=== PATIENT | female | born 1995 | race Caucasian/White ===

== ENCOUNTER → 2017-11-18 | Outpatient (CLI) | payer BC ==
[2015-10-28 15:46] VITALS: BP 140/74
[~2017-11-18] VITALS: Ht 157.5 cm; Wt 72.6 kg
[~2017-11-18] MED LIST: SINCALIDE 1.45 MCG in IV NORMAL SALINE 50ML 30 ML IV ONE
--- NOTE | 2017-11-18 14:31 | RAD ---
Examination: HIDA scan History: History of abdominal pain Comparison: None available Findings: 5.5 mCi of technetium 99m Choletec was administered IV and anterior gamma camera images of the abdomen are performed. There is normal radiotracer uptake identified in the liver with normal excretion of the radiotracer into the gallbladder, common bile duct, small bowel. Additional imaging was performed after administration of 1.45 mcg of Kinevac for calculation of gallbladder ejection fraction. The calculated gallbladder ejection fraction was 70%. Impression: 1. No evidence of cystic duct obstruction. 2. Normal gallbladder ejection fraction.
== END | disposition home or self-care (01) ==
LOC: NM 12:13
PROVIDERS: ATTEND Family Medicine
DX: K85.80 Other acute pancreatitis without necrosis or infection (principal)
CPT/HCPCS: 78226; 96374; 96375; A9537; J2805

== ENCOUNTER → 2017-12-03 | Outpatient (CLI) | payer BC ==
[2015-10-28 15:46] VITALS: BP 140/74
[~2017-12-03] MED LIST changes: +IOHEXOL 240 MG/ML 50ML VIAL. ONE; +IOHEXOL 300 MG/ML 75 ML VIAL. IV ONE; -SINCALIDE 1.45 MCG in IV NORMAL SALINE 50ML 30 ML IV ONE
--- NOTE | 2017-12-03 14:02 | RAD ---
CT study of the abdomen with contrast Clinical indications: Right upper quadrant pain for one month. Elevated lipase. Pancreatitis. Comparison: No previous CT available. Technique: After IV infusion of 75 cc of Omnipaque 300, helical CT scanning of the abdomen was performed from the hemidiaphragms down to the iliac crests. GI contrast was administered. RS Compliance Statement: One or more of the following individualized dose reduction techniques were utilized for this examination: 1. Automated exposure control 2. Adjustment of the mA and/or kV according to patient size 3. Use of iterative reconstruction technique Findings: The liver and spleen and pancreas and gallbladder are normal. No peripancreatic inflammatory change or free fluid or pseudocyst is seen. No pancreatic ductal dilatation is seen. No extrahepatic biliary ductal dilatation is seen. No adrenal mass is seen. Both kidneys are normal without hydronephrosis. No focal aneurysmal dilatation of the abdominal aorta is seen. No enlarged abdominal lymphadenopathy is seen. No obstructive bowel pattern is seen. No free air or free fluid or mesenteric edema is seen. The pelvis was not evaluated on this study. No osteolytic process is seen. No lung base consolidation is evident. IMPRESSION: No acute abnormality of the abdomen is evident.
== END | disposition home or self-care (01) ==
LOC: CT 09:59
PROVIDERS: ATTEND Physician Assistant
DX: K85.90 Acute pancreatitis without necrosis or infection, unspecified (principal); R74.8 Abnormal levels of other serum enzymes
CPT/HCPCS: 74160; Q9966; Q9967

== ENCOUNTER 2018-03-10 06:09 | Emergency (ER) | payer SELFPAY ==
[~2018-03-10] VITALS: Ht 157.5 cm; Wt 72.6 kg
[2018-03-10] MEDS ORDERED: IV NORMAL SALINE 1,000ML 1,000 ML IV ONE (07:00)
[2018-03-10] MEDS ORDERED: METOCLOPRAMIDE HCL 10 MG/2 ML VIAL. IV ONE (07:00)
[2018-03-10 07:01] LABS: BASO # 0.1 x10^3/uL (0.0-0.2); BASO % 1 % (0-3); EOS # 0.1 x10^3/uL (0.0-0.7); EOS % 1 % (0-3); HEMOGLOBIN 14.4 g/dL (12.0-15.5); LYMPH # 2.2 x10^3/uL (1.0-4.8); LYMPH % 23 % (24-48); MEAN CORPUSCULAR HEMOGLOBIN 29 pg (25-35); MEAN CORPUSCULAR HGB CONC 33 g/dL (31-37); MEAN CORPUSCULAR VOLUME 86 fL (79-100); MONO # 0.6 x10^3/uL (0.0-1.1); MONO % 6 % (0-9); NEUT # 6.6 x10^3uL (1.8-7.7); NEUT % 69 % (31-73); PLATELET COUNT 299 x10^3/uL (140-400); RED BLOOD COUNT 5.03 x10^6/uL (3.50-5.40); RED CELL DISTRIBUTION WIDTH 14.8 % (11.5-14.5); WHITE BLOOD COUNT 9.6 x10^3/uL (4.0-11.0)
[2018-03-10 07:02] LABS: PREG TEST PT QUAL NEGATIVE (NEG)
[2018-03-10 07:05] LABS: ALBUMIN 3.6 g/dL (3.4-5.0); ALK PHOS 67 U/L (46-116); ALT (SGPT) 23 U/L (14-59); ANION GAP 10 (6-14); AST (SGOT) 22 U/L (15-37); BLOOD UREA NITROGEN 11 mg/dL (7-20); CALCIUM 9.1 mg/dL (8.5-10.1); CARBON DIOXIDE 29 mmol/L (21-32); CHLORIDE 102 mmol/L (98-107); CREATININE 0.9 mg/dL (0.6-1.0); DIRECT BILIRUBIN < 0.1 mg/dL (0.0-0.2); GFR 78.3; GLUCOSE 99 mg/dL (70-99); LIPASE 416 U/L (73-393); POTASSIUM 4.4 mmol/L (3.5-5.1); SODIUM 141 mmol/L (136-145); TOTAL BILIRUBIN 0.2 mg/dL (0.2-1.0); TOTAL PROTEIN 7.6 g/dL (6.4-8.2)
[2018-03-10 07:15] LABS: BILIRUBIN,URINE NEG (NEG); CLARITY,URINE CLOUDY; COLOR,URINE YELLOW; GLUCOSE,URINE NEG (NEG)
[2018-03-10 07:16] LABS: AMORPHOUS SEDIMENT,UR PRESENT /HPF; BACTERIA,URINE MOD /HPF (0-FEW); NITRITE,URINE NEG (NEG); RBC,URINE 0 /HPF (0-2); SQUAMOUS EPITHELIAL CELL,UR FEW /LPF; UROBILINOGEN,URINE 0.2 mg/dL (0.2 mg/dL); WBC,URINE 0 /HPF (0-4)
[2018-03-10] MEDS ORDERED: IOHEXOL 300 MG/ML 75 ML VIAL. IV ONE (07:30)
[2018-03-10 08:15] VITALS: BP 133/67
--- NOTE | 2018-03-10 08:18 | RAD ---
CT abdomen and pelvis with contrast History: Lower abdominal pain, nausea Technique: After the administration of intravenous contrast, CT imaging was performed of the abdomen and pelvis. No oral contrast was given as per request. Multiplanar images are reviewed. Exposure: One or more of the following individualized dose reduction techniques were utilized for this examination: 1. Automated exposure control 2. Adjustment of the mA and/or kV according to patient size 3. Use of iterative reconstruction technique. Contrast: 75 cc Omnipaque 300 Comparison: None Findings: There is no significant abnormality of the visualized lung bases. There is no significant abnormality of the liver, spleen, pancreas, adrenal glands. Both kidneys enhance without hydronephrosis. Gallbladder is present without obvious intraluminal abnormality by CT. Accurate evaluation of bowel is limited without oral contrast. There is no significant inflammatory change adjacent to the bowel. There is no evidence of bowel obstruction, free fluid, or free air. Normal appendix is visualized. There is 2.5 cm hypodense lesion of the right adnexal region with adjacent mild enhancement, internal density measurements 23 Hounsfield units slightly greater than simple fluid. Impression: 1. There is no CT evidence of acute appendicitis. 2. There is hypodense lesion of the right adnexa probably due to slightly complex cyst, mild adjacent enhancement. There is no significant free fluid. Electronically signed by: Luiz Lynch MD (03/10/2018 8:15 AM) [id number]
[2018-03-10] MEDS ORDERED: HYDR-2758 PO (08:21)
[2018-03-10] MEDS ORDERED: METO10TA81 PO (08:21)
--- NOTE | 2018-03-10 08:21 | PHYS DOC ---
Adult General Chief Complaint Chief Complaint: ABDOMINAL PAIN HPI HPI 22-year-old female with a history of chronic abdominal pain presenting to the emergency department today with abdominal pain that she describes as all over and is nonlocalizing. She has had a few CTs of the last 6 months which she reports is unremarkable. She has had a HIDA scan that I'm able to view in our medical record that was unremarkable. She had an endoscopy performed with biopsy which was positive for H. pylori which she initiated antibiotics recently for. She reports that the antibiotics did not help her symptoms. She does occasionally use marijuana but her symptoms are not improved with hot baths. No specific timing. Her pain is nonradiating and nonmigratory. She denies being . She denies vaginal bleeding exposure to STDs fevers chills. She denies foul-smelling discharge or changes in her vaginal discharge color. Past medical history: Chronic abdominal pain and history of elevated lipase. Past surgical history: Bilateral knee surgeries Social history: She denies smoking, denies drinking. He admits to marijuana occasionally. Review of systems was negative for chest pain shortness of breath fevers chills. She has had intermittent vomiting with nonbloody and nonbilious material. She reports intermittent diarrhea and constipation. All other review of systems is negative unless otherwise noted in history of present illness. ED course: 22-year-old female presenting the emergency department with acute on chronic abdominal pain. On arrival she is afebrile with a normal heart rate. On examination she is well-appearing and nontoxic. Abdomen is soft and nontender. No rebound tenderness or guarding. Negative bruits point. Negative [place] sign. IV fluids nausea and pain medication ordered. Blood work sent. CT abdomen pelvis ordered. Blood work unremarkable. CT abdomen pelvis shows no acute pathology. Repeat abdominal exam continues to show soft and nontender abdomen. Patient is feeling better.The patient has been examined and was not found to have an emergency medical condition. The patient was then discharged home in stable condition to follow up with their primary care physician over the next 2- 3 days. They were to return if their symptoms worsened or if they were concerned for any reason. [id number] discharge instructions and return precautions were given. Patient's questions were answered to their satisfaction. Patient is comfortable with plan. Review of Systems Review of Systems SEE ABOVE. Current Medications Current Medications Current Medications Medications (Trade) Dose Ordered Sig/Paulette Start Time Stop Time Status Last Admin Dose Admin Fentanyl Citrate (Fentanyl 2ml Vial) 50 mcg PRN Q30MIN PRN 03/10/18 07:00 03/10/18 07:46 50 MCG Iohexol (Omnipaque 300 Mg/ml) 75 ml 1X ONCE 03/10/18 07:30 03/10/18 07:31 DC 03/10/18 07:38 75 ML Metoclopramide HCl (Reglan Vial) 10 mg 1X ONCE 03/10/18 07:00 03/10/18 07:05 DC 03/10/18 07:06 10 MG Sodium Chloride 1,000 ml @ 1,000 mls/hr 1X ONCE 03/10/18 07:00 03/10/18 07:59 DC 03/10/18 07:06 1,000 MLS/HR Allergies Allergies Allergies Coded Allergies Type Severity Reaction Last Updated Verified No Known Drug Allergies 10/28/15 No Physical Exam Physical Exam SEE ABOVE Constitutional: Well developed, well nourished, no acute distress, non-toxic appearance. [] HENT: Normocephalic, atraumatic, bilateral external ears normal, oropharynx moist, no oral exudates, nose normal. [] Eyes: PERRLA, EOMI, conjunctiva normal, no discharge. [] Neck: Normal range of motion, no tenderness, supple, no stridor. [] Cardiovascular:Heart rate regular rhythm, no murmur [] Lungs & Thorax: Bilateral breath sounds clear to auscultation [] Abdomen: Bowel sounds normal, soft, no tenderness, no masses, no pulsatile masses. [] Skin: Warm, dry, no erythema, no rash. [] Back: No tenderness, no CVA tenderness. [] Extremities: No tenderness, no cyanosis, no clubbing, ROM intact, no edema. [] Neurologic: Alert and oriented X 3, normal motor function, normal sensory function, no focal deficits noted. [] Psychologic: Affect normal, judgement normal, mood normal. [] Current Patient Data Vital Signs Vital Signs Date Time Temp Pulse Resp B/P (MAP) Pulse Ox O2 Delivery O2 Flow Rate FiO2 03/10/18 07:46 16 Room Air 03/10/18 07:10 67 114/56 (75) 95 03/10/18 06:21 98.4 Lab Results Laboratory Tests Test 03/10/18 06:20 03/10/18 06:30 Urine Collection Type Unknown Urine Color Yellow Urine Clarity Cloudy Urine pH 7.0 Urine Specific Robert 1.020 Urine Protein Neg (NEG-TRACE) Urine Glucose (UA) Neg mg/dL (NEG) Urine Ketones (Stick) Trace mg/dL (NEG) Urine Blood Neg (NEG) Urine Nitrite Neg (NEG) Urine Bilirubin Neg (NEG) Urine Urobilinogen Dipstick 0.2 mg/dL (0.2 mg/dL) Urine Leukocyte Esterase Neg (NEG) Urine RBC 0 /HPF (0-2) Urine WBC 0 /HPF (0-4) Urine Squamous Epithelial Cells Few /LPF Urine Amorphous Sediment Present /HPF Urine Bacteria Mod /HPF (0-FEW) Urine Mucus Slight /LPF White Blood Count 9.6 x10^3/uL (4.0-11.0) Red Blood Count 5.03 x10^6/uL (3.50-5.40) Hemoglobin 14.4 g/dL (12.0-15.5) Hematocrit 43.0 % (36.0-47.0) Mean Corpuscular Volume 86 fL (79-100) Mean Corpuscular Hemoglobin 29 pg (25-35) Mean Corpuscular Hemoglobin Concent 33 g/dL (31-37) Red Cell Distribution Width 14.8 % (11.5-14.5) H Platelet Count 299 x10^3/uL (140-400) Neutrophils (%) (Auto) 69 % (31-73) Lymphocytes (%) (Auto) 23 % (24-48) L Monocytes (%) (Auto) 6 % (0-9) Eosinophils (%) (Auto) 1 % (0-3) Basophils (%) (Auto) 1 % (0-3) Neutrophils # (Auto) 6.6 x10^3uL (1.8-7.7) Lymphocytes # (Auto) 2.2 x10^3/uL (1.0-4.8) Monocytes # (Auto) 0.6 x10^3/uL (0.0-1.1) Eosinophils # (Auto) 0.1 x10^3/uL (0.0-0.7) Basophils # (Auto) 0.1 x10^3/uL (0.0-0.2) Sodium Level 141 mmol/L (136-145) Potassium Level 4.4 mmol/L (3.5-5.1) Chloride Level 102 mmol/L (98-107) Carbon Dioxide Level 29 mmol/L (21-32) Anion Gap 10 (6-14) Blood Urea Nitrogen 11 mg/dL (7-20) Creatinine 0.9 mg/dL (0.6-1.0) Estimated GFR (Cockcroft-Gault) 78.3 Glucose Level 99 mg/dL (70-99) Calcium Level 9.1 mg/dL (8.5-10.1) Total Bilirubin 0.2 mg/dL (0.2-1.0) Direct Bilirubin < 0.1 mg/dL (0.0-0.2) Aspartate Amino Transferase (AST) 22 U/L (15-37) Alanine Aminotransferase (ALT) 23 U/L (14-59) Alkaline Phosphatase 67 U/L (46-116) Total Protein 7.6 g/dL (6.4-8.2) Albumin 3.6 g/dL (3.4-5.0) Lipase 416 U/L (73-393) H Serum Test, Qualitative Negative (NEG) EKG EKG [] Radiology/Procedures Radiology/Procedures [] Course & Med Decision Making Course & Med Decision Making Pertinent Labs and Imaging studies reviewed. (See chart for details) [] Dragon Disclaimer Dragon Disclaimer This electronic medical record was generated, in whole or in part, using a voice recognition dictation system. Departure Departure: Impression: Primary Impression: Abdominal pain Disposition: HOME, SELF-CARE Condition: STABLE Referrals: SANDRA HERNANDEZ MD (PCP) Patient Instructions: Abdominal Pain, Women Additional Instructions: Thank you for allowing us to participate in your care today. Followup with your primary care physician in 3 days if your symptoms do not improve. Call your Primary Doctor tomorrow and inform them of your visit today. If you do not have a primary care provider you can ask for a list of our primary care providers. Return to the emergency department you have any new or concerning findings. This should be evaluated by the primary care physician and any necessary consulting services for continued management within a few days after discharge. Return to emergency room if you have any new or concerning symptoms including but not limited to fever, chills, nausea, vomiting, intractable pain, any new rashes, chest pain, shortness of air, uncontrolled bleeding, difficulty breathing, and/or vision loss. If at any time, you are having difficulty getting into your primary care doctor or a specialist, return to the emergency department. Scripts Hydrocodone Bit/Acetaminophen (HYDROCODONE-APAP 5-325 ) 1 Each Tablet 1 TAB PO PRN Q6HRS PRN for PAIN, #10 TAB 0 Refills Prov: RADHA MULLINS MD 03/10/18 Metoclopramide Hcl (REGLAN) 10 Mg Tablet 1 TAB PO PRN BID PRN for NAUSEA, #6 TAB Prov: RADHA MULLINS MD 03/10/18 RADHA MULLINS MD March 10, 2018 08:21
== END 2018-03-10 08:36 | disposition home or self-care (01) ==
LOC: ER 06:09
DX: G89.29 Other chronic pain (principal); R10.9 Unspecified abdominal pain; F12.10 Cannabis abuse, uncomplicated
CPT/HCPCS: 36415; 74177; 80048; 80076; 81001; 83690; 84703; 85025; 87086; 96374; 96375; 96376; 99285; J2765; J3010; Q9967; J7030

== ENCOUNTER 2019-04-10 18:13 | Emergency (ER) | payer SELFPAY ==
[~2019-04-10] VITALS: Ht 157.5 cm; Wt 66.2 kg
[~2019-04-10 18:13] MED LIST changes: +HYDR-2155 PO; -IOHEXOL 240 MG/ML 50ML VIAL. ONE; -IOHEXOL 300 MG/ML 75 ML VIAL. IV ONE; +METO10TA81 PO; +ONDA4TAB10 SL; +Percogesic PO; +RANI-376 PO
--- NOTE | 2019-04-10 19:11 | ED.ADGEN ---
Past History Past Medical History: GERD, Ovarian Cyst, Pancreatitis, P.U.D, UTI Additional Past Medical Histor: history of H. pylori status post treatment Past Surgical History: Other Smoking: Cigarettes Alcohol Use: None Drug Use: None Adult General Chief Complaint Chief Complaint ".. I am having severe chest and upper abdomen pain.. but now the pain in now stop.. and seems to be down on my lower right.. I got a history fo gall bladder problems.. pancreatitis.. and I have GERD.. and had Peptic ulcer.. and H pylori.. but this pain is different.." [facility] HPI Patient is a 23 year old female who presents with history of generalized abdomen pain with now severe Rt. lower abdomen pain. Patient also complains of epigastric and chest pain. Patient also notes she's had some recent pelvic discharge. Patient denies any intake of bad food. Patient denies any trauma. Patient denies any specific ill contacts. Patient denies any tarry stools. No history immunosuppression. No history of STDs. Patient currently rates her pain as 8 out of 10. Any movement exacerbates pain in right lower quadrant. Patient does have a past history of GERD, peptic ulcer disease, H. pylori, and pancreat itis. Pt has had hx of dysmenorrhea. Review of Systems Review of Systems Constitutional: Denies fever or chills [] Eyes: Denies change in visual acuity, redness, or eye pain [] HENT: Denies nasal congestion or sore throat [] Respiratory: Denies cough or shortness of breath [] Cardiovascular: No additional information not addressed in HPI []complaints of epigastric chest pain GI: Complaints of severe right lower quadrant abdominal pain. Complaints of pelvic discharge., Complaints of, nausea, . Denies vomiting, bloody stools or diarrhea [] : Denies dysuria or hematuria [] Musculoskeletal: Denies back pain or joint pain [] Integument: Denies rash or skin lesions [] Neurologic: Denies headache, focal weakness or sensory changes [] Endocrine: Denies polyuria or polydipsia [] All other systems were reviewed and found to be within normal limits, except as documented in this note. Family History Family History Noncontributory to presentation Current Medications Current Medications Current Medications Medications (Trade) Dose Ordered Sig/Paulette Start Time Stop Time Status Last Admin Dose Admin Azithromycin (Zithromax) 1,000 mg 1X ONCE 04/11/19 00:15 04/11/19 00:16 DC Ceftriaxone Sodium 1 gm/ Sodium Chloride 50 ml @ 100 mls/hr 1X ONCE 04/10/19 23:45 04/11/19 00:14 DC 04/10/19 23:54 100 MLS/HR Ceftriaxone Sodium (Rocephin) 1 gm STK-MED ONCE 04/10/19 23:48 04/10/19 23:49 DC Famotidine (Pepcid Vial) 20 mg 1X ONCE 04/10/19 20:00 04/10/19 20:01 DC 04/10/19 20:09 20 MG Info (Do NOT chart on this entry -- for MONITORING) 1 each PRN DAILY PRN 04/10/19 23:15 04/11/19 01:38 DC Iohexol (Omnipaque 240 Mg/ml) 50 ml 1X ONCE 04/10/19 23:15 04/10/19 23:16 DC 04/10/19 23:17 50 ML Iohexol (Omnipaque 300 Mg/ml) 75 ml 1X ONCE 04/10/19 23:15 04/10/19 23:16 DC 04/10/19 23:17 75 ML Ketorolac Tromethamine (Toradol 30mg Vial) 30 mg 1X ONCE 04/10/19 20:00 04/10/19 20:01 DC 04/10/19 20:19 30 MG Lactated Ringer's 1,000 ml @ 1,000 mls/hr Q1H 04/10/19 20:00 04/10/19 20:59 DC 04/10/19 20:09 1,000 MLS/HR Magnesium Hydroxide (Milk Of Magnesia) 2,400 mg 1X ONCE 04/11/19 00:15 04/11/19 00:16 DC Metronidazole 100 ml @ 100 mls/hr 1X ONCE 04/10/19 23:45 04/11/19 00:44 DC 04/10/19 23:54 100 MLS/HR Morphine Sulfate (Morphine 10mg Syringe) 10 mg 1X ONCE 04/10/19 23:00 04/10/19 23:12 DC 04/10/19 23:13 10 MG Ondansetron HCl (Zofran) 8 mg 1X ONCE 04/10/19 20:00 04/10/19 20:01 DC 04/10/19 20:09 8 MG Sodium Chloride 50 ml @ As Directed STK-MED ONCE 04/10/19 23:48 04/10/19 23:49 DC See nursing for home meds Allergies Allergies Allergies Coded Allergies Type Severity Reaction Last Updated Verified No Known Drug Allergies 04/10/19 No Physical Exam Physical Exam Constitutional: in acute distress, non-toxic appearance. [] HENT: Normocephalic, atraumatic, bilateral external ears normal, oropharynx moist, no oral exudates, nose normal. [] Eyes: PERRLA, EOMI, conjunctiva normal, no discharge. [] Neck: Normal range of motion, no tenderness, supple, no stridor. [] Cardiovascular:Heart rate regular rhythm, no murmur [] Lungs & Thorax: Bilateral breath sounds equal at apex on auscultation [] Abdomen: Bowel sounds decreased, soft, right lower quadrant tenderness, no masses, no pulsatile masses. [] Rebound to right lower quadrant. Vaginal exam has mild discharge with cervical motion tenderness. Adnexal tenderness on the right. Hard stool in rectal vault Skin: Warm, dry, no erythema, no rash. [] Back: No tenderness, no CVA tenderness. [] Extremities: No tenderness, no cyanosis, no clubbing, ROM intact, no edema. Positive psoas and obturator sign on right. Patient cannot jump up and down without severe right lower quadrant pain. Bilateral knee scars Neurologic: Alert and oriented X 3, normal motor function, normal sensory function, no focal deficits noted. [] Psychologic: Affect anxious, judgement normal, mood normal. [] Current Patient Data Vital Signs Vital Signs Date Time Temp Pulse Resp B/P (MAP) Pulse Ox O2 Delivery O2 Flow Rate FiO2 04/11/19 00:20 98.5 57 16 122/79 (93) 97 Room Air Lab Results Laboratory Tests Test 04/10/19 18:31 04/10/19 19:35 04/10/19 19:37 Urine Collection Type Unknown Urine Color Straw Urine Clarity Hazy Urine pH 6.5 Urine Specific [place] <=1.005 Urine Protein Neg (NEG-TRACE) Urine Glucose (UA) Neg mg/dL (NEG) Urine Ketones (Stick) Neg mg/dL (NEG) Urine Blood Neg (NEG) Urine Nitrite Neg (NEG) Urine Bilirubin Neg (NEG) Urine Urobilinogen Dipstick 0.2 mg/dL (0.2 mg/dL) Urine Leukocyte Esterase Small (NEG) Urine RBC Occ /HPF (0-2) Urine WBC 11-20 /HPF (0-4) Urine Squamous Epithelial Cells Mod /LPF Urine Bacteria Mod /HPF (0-FEW) Urine Opiates Screen Neg (NEG) Urine Methadone Screen Neg (NEG) Urine Barbiturates Neg (NEG) Urine Phencyclidine Screen Neg (NEG) Urine Amphetamine/Methamphetamine Neg (NEG) Urine Benzodiazepines Screen Neg (NEG) Urine Cocaine Screen Neg (NEG) Urine Cannabinoids Screen Pos (NEG) Urine Ethyl Alcohol Neg (NEG) POC Urine HCG, Qualitative hcg negative (Negative) White Blood Count 12.2 x10^3/uL (4.0-11.0) H Red Blood Count 5.24 x10^6/uL (3.50-5.40) Hemoglobin 15.4 g/dL (12.0-15.5) Hematocrit 47.4 % (36.0-47.0) H Mean Corpuscular Volume 91 fL (79-100) Mean Corpuscular Hemoglobin 29 pg (25-35) Mean Corpuscular Hemoglobin Concent 33 g/dL (31-37) Red Cell Distribution Width 14.0 % (11.5-14.5) Platelet Count 291 x10^3/uL (140-400) Neutrophils (%) (Auto) 60 % (31-73) Lymphocytes (%) (Auto) 31 % (24-48) Monocytes (%) (Auto) 6 % (0-9) Eosinophils (%) (Auto) 2 % (0-3) Basophils (%) (Auto) 1 % (0-3) Neutrophils # (Auto) 7.4 x10^3uL (1.8-7.7) Lymphocytes # (Auto) 3.8 x10^3/uL (1.0-4.8) Monocytes # (Auto) 0.8 x10^3/uL (0.0-1.1) Eosinophils # (Auto) 0.2 x10^3/uL (0.0-0.7) Basophils # (Auto) 0.1 x10^3/uL (0.0-0.2) Prothrombin Time 9.4 SEC (9.4-11.4) Prothrombin Time INR 0.9 (0.9-1.1) PTT 25 SEC (23-33) Sodium Level 138 mmol/L (136-145) Potassium Level 4.1 mmol/L (3.5-5.1) Chloride Level 102 mmol/L (98-107) Carbon Dioxide Level 30 mmol/L (21-32) Anion Gap 6 (6-14) Blood Urea Nitrogen 13 mg/dL (7-20) Creatinine 0.7 mg/dL (0.6-1.0) Estimated GFR (Cockcroft-Gault) 103.7 Glucose Level 108 mg/dL (70-99) H Calcium Level 9.1 mg/dL (8.5-10.1) Total Bilirubin 0.2 mg/dL (0.2-1.0) Direct Bilirubin 0.1 mg/dL (0.0-0.2) Aspartate Amino Transferase (AST) 14 U/L (15-37) L Alanine Aminotransferase (ALT) 21 U/L (14-59) Alkaline Phosphatase 82 U/L (46-116) Total Protein 8.2 g/dL (6.4-8.2) Albumin 3.9 g/dL (3.4-5.0) Lipase 348 U/L (73-393) Microbiology 04/10/19 Wet Prep - Final, Complete Microbiology 04/10/19 Wet Prep - Final, Complete EKG EKG My interpretation of EKG shows a sinus rhythm at 64 bpm. Does have some contour abnormalities in the anterior septal region. But no findings acute STEMI of contralateral changes.[] Radiology/Procedures Radiology/Procedures [][address] [address] IMAGING REPORT Signed PATIENT: MARCELINA FARNSWORTH ACCOUNT: [id number] : 1995 LOCATION: ER AGE: 23 SEX: F EXAM STATUS: REG ER ORD. PHYSICIAN: ROSLYN MEEK MD REASON: Pain Rt. lower quadrant PROCEDURE: CT ABD PELV W/ORAL&IV CONTRAST EXAM: CT Abdomen and Pelvis with IV contrast CLINICAL HISTORY: Right lower quadrant pain. COMPARISON: none TECHNIQUE: Helical CT of the abdomen and pelvis was performed following the administration of intravenous contrast. Axial, coronal and sagittal reformatted images were generated. PQRS compliance statement - One or more of the following individualized dose reduction techniques were utilized for this study: 1. Automated exposure control 2. Adjustment of the mA and/or kV according to patient size 3. Use of iterative reconstruction technique FINDINGS: Lower chest: Lung bases are clear. Abdomen and Pelvis: No focal liver lesion. Gallbladder is normal. No biliary ductal dilatation. Spleen is unremarkable. Adrenal glands are normal. Pancreas is unremarkable. Symmetric nephrograms. No focal renal lesion. No hydronephrosis. No hydroureter. Moderate colonic stool content is seen. The appendix is filled with contrast. No evidence for bowel obstruction. Right ovarian cystic structure/follicle is seen. Mild endometrial prominence can be correlated with phase of menstrual cycle. Bones: Degenerative changes of the spine are seen. IMPRESSION: 1. Right adnexal cystic structure is seen, likely ovarian follicle. 2. The appendix is normal in appearance, filled with contrast. 3. No evidence of bowel obstruction. 4. Mild prominence of endometrium can be correlated with phase of menstrual cycle. Electronically signed by: Yuriy Esposito MD (04/10/2019 11:50 PM) [facility] Course & Med Decision Making Course & Med Decision Making Pertinent Labs and Imaging studies reviewed. (See chart for details) Patient remain on clear fluid diet for 2 days. No solid or milk products. Allow bowel rest. Take Keflex 500 x 3 times a day. Patient use MetroGel nightly for 7 days. Patient Tylenol and ibuprofen for pain. Patient may take Vicoprofen up to 4 times a day for marked pain. Patient take Zofran 8 mg up 4 times a day for nausea and vomiting. Must follow-up pending cultures. Must practice safe sex. If no improvement must have reexam. Follow-up primary care. Return if any concerns. [] Final Impression Final Impression 1. Abdomen pain 2. Cervicitis 3. Bacterial vaginosis 4. Marijuana and tobacco use 5. Leukocytosis 12.2[] 6. Ovarian cysts Dragon Disclaimer Dragon Disclaimer This electronic medical record was generated, in whole or in part, using a voice recognition dictation system. Discharge Summary Visit Information Final Diagnosis Problems Medical Problems: (1) Bacterial vaginosis Status: Acute (2) Cervicitis Status: Acute (3) Ovarian cyst Status: Acute (4) Pain in the abdomen Status: Acute Brief Hospital Course Allergies Allergies Coded Allergies Type Severity Reaction Last Updated Verified No Known Drug Allergies 04/10/19 No Vital Signs Vital Signs Date Time Temp Pulse Resp B/P (MAP) Pulse Ox O2 Delivery O2 Flow Rate FiO2 04/11/19 00:20 98.5 57 16 122/79 (93) 97 Room Air Lab Results Laboratory Tests Test 04/10/19 18:31 04/10/19 19:35 04/10/19 19:37 Urine Collection Type Unknown Urine Color Straw Urine Clarity Hazy Urine pH 6.5 Urine Specific [place] <=1.005 Urine Protein Neg (NEG-TRACE) Urine Glucose (UA) Neg mg/dL (NEG) Urine Ketones (Stick) Neg mg/dL (NEG) Urine Blood Neg (NEG) Urine Nitrite Neg (NEG) Urine Bilirubin Neg (NEG) Urine Urobilinogen Dipstick 0.2 mg/dL (0.2 mg/dL) Urine Leukocyte Esterase Small (NEG) Urine RBC Occ /HPF (0-2) Urine WBC 11-20 /HPF (0-4) Urine Squamous Epithelial Cells Mod /LPF Urine Bacteria Mod /HPF (0-FEW) Urine Opiates Screen Neg (NEG) Urine Methadone Screen Neg (NEG) Urine Barbiturates Neg (NEG) Urine Phencyclidine Screen Neg (NEG) Urine Amphetamine/Methamphetamine Neg (NEG) Urine Benzodiazepines Screen Neg (NEG) Urine Cocaine Screen Neg (NEG) Urine Cannabinoids Screen Pos (NEG) Urine Ethyl Alcohol Neg (NEG) Bedside Urine HCG, Qualitative hcg negative (Negative) White Blood Count 12.2 x10^3/uL (4.0-11.0) Red Blood Count 5.24 x10^6/uL (3.50-5.40) Hemoglobin 15.4 g/dL (12.0-15.5) Hematocrit 47.4 % (36.0-47.0) Mean Corpuscular Volume 91 fL (79-100) Mean Corpuscular Hemoglobin 29 pg (25-35) Mean Corpuscular Hemoglobin Concent 33 g/dL (31-37) Red Cell Distribution Width 14.0 % (11.5-14.5) Platelet Count 291 x10^3/uL (140-400) Neutrophils (%) (Auto) 60 % (31-73) Lymphocytes (%) (Auto) 31 % (24-48) Monocytes (%) (Auto) 6 % (0-9) Eosinophils (%) (Auto) 2 % (0-3) Basophils (%) (Auto) 1 % (0-3) Neutrophils # (Auto) 7.4 x10^3uL (1.8-7.7) Lymphocytes # (Auto) 3.8 x10^3/uL (1.0-4.8) Monocytes # (Auto) 0.8 x10^3/uL (0.0-1.1) Eosinophils # (Auto) 0.2 x10^3/uL (0.0-0.7) Basophils # (Auto) 0.1 x10^3/uL (0.0-0.2) Prothrombin Time 9.4 SEC (9.4-11.4) Prothromb Time International Ratio 0.9 (0.9-1.1) Activated Partial Thromboplast Time 25 SEC (23-33) Sodium Level 138 mmol/L (136-145) Potassium Level 4.1 mmol/L (3.5-5.1) Chloride Level 102 mmol/L (98-107) Carbon Dioxide Level 30 mmol/L (21-32) Anion Gap 6 (6-14) Blood Urea Nitrogen 13 mg/dL (7-20) Creatinine 0.7 mg/dL (0.6-1.0) Estimated GFR (Cockcroft-Gault) 103.7 Glucose Level 108 mg/dL (70-99) Calcium Level 9.1 mg/dL (8.5-10.1) Total Bilirubin 0.2 mg/dL (0.2-1.0) Direct Bilirubin 0.1 mg/dL (0.0-0.2) Aspartate Amino Transf (AST/SGOT) 14 U/L (15-37) Alanine Aminotransferase (ALT/SGPT) 21 U/L (14-59) Alkaline Phosphatase 82 U/L (46-116) Total Protein 8.2 g/dL (6.4-8.2) Albumin 3.9 g/dL (3.4-5.0) Lipase 348 U/L (73-393) Brief Hospital Course Ms. Farnsworth is a 23 old female who presented with Rt. lower abd. pain and Cervicitis. Discharge Information Condition at Discharge: Improved Disposition/Orders: D/C to Home Dischare Medications Current Medications Lactated Ringer's 1,000 ml @ 1,000 mls/hr Q1H IV Last administered on 04/10/19at 20:09; Admin Dose 1,000 MLS/HR; Start 04/10/19 at 20:00; Stop 04/10/19 at 20:59; Status DC Ondansetron HCl (Zofran) 8 mg 1X ONCE IV Last administered on 04/10/19at 20:09; Admin Dose 8 MG; Start 04/10/19 at 20:00; Stop 04/10/19 at 20:01; Status DC Famotidine (Pepcid Vial) 20 mg 1X ONCE IVP Last administered on 04/10/19at 20:09; Admin Dose 20 MG; Start 04/10/19 at 20:00; Stop 04/10/19 at 20:01; Stat us DC Ketorolac Tromethamine (Toradol 30mg Vial) 30 mg 1X ONCE IV Last administered on 04/10/19at 20:19; Admin Dose 30 MG; Start 04/10/19 at 20:00; Stop 04/10/19 at 20:01; Status DC Iohexol (Omnipaque 240 Mg/ml) 50 ml STK-MED ONCE .ROUTE ; Start 04/10/19 at 21:11; Stop 04/10/19 at 21:12; Status DC Morphine Sulfate (Morphine 10mg Syringe) 10 mg 1X ONCE SQ Last administered on 04/10/19at 23:13; Admin Dose 10 MG; Start 04/10/19 at 23:00; Stop 04/10/19 at 23:12; Status DC Iohexol (Omnipaque 240 Mg/ml) 50 ml 1X ONCE PO Last administered on 04/10/19at 23:17; Admin Dose 50 ML; Start 04/10/19 at 23:15; Stop 04/10/19 at 23:16; Status DC Iohexol (Omnipaque 300 Mg/ml) 75 ml 1X ONCE IV Last administered on 04/10/19at 23:17; Admin Dose 75 ML; Start 04/10/19 at 23:15; Stop 04/10/19 at 23:16; Status DC Info (Do NOT chart on this entry -- for MONITORING) 1 each PRN DAILY PRN MC SEE COMMENTS; Start 04/10/19 at 23:15; Stop 04/11/19 at 01:38; Status DC Ceftriaxone Sodium 1 gm/ Sodium Chloride 50 ml @ 100 mls/hr 1X ONCE IV Last administered on 04/10/19at 23:54; Admin Dose 100 MLS/HR; Start 04/10/19 at 23:45; Stop 04/11/19 at 00:14; Status DC Metronidazole 100 ml @ 100 mls/hr 1X ONCE IV Last administered on 04/10/19at 23:54; Admin Dose 100 MLS/HR; Start 04/10/19 at 23:45; Stop 04/11/19 at 00:44; Status DC Sodium Chloride 50 ml @ As Directed STK-MED ONCE .ROUTE ; Start 04/10/19 at 23:48; Stop 04/10/19 at 23:49; Status DC Ceftriaxone Sodium (Rocephin) 1 gm STK-MED ONCE .ROUTE ; Start 04/10/19 at 23:48; Stop 04/10/19 at 23:49; Status DC Azithromycin (Zithromax) 1,000 mg 1X ONCE PO ; Start 04/11/19 at 00:15; Stop 04/11/19 at 00:16; Status DC Magnesium Hydroxide (Milk Of Magnesia) 2,400 mg 1X ONCE PO ; Start 04/11/19 at 00:15; Stop 04/11/19 at 00:16; Status DC Active Scripts Active Diflucan (Fluconazole) 100 Mg Tablet 100 Mg PO DAILY 3 Days Metrogel-Vaginal (Metronidazole) 70 Gm Gel.w.appl 1 Appful VG QHS Zofran (Ondansetron Hcl) 8 Mg Tablet 8 Mg PO QIDPRN PRN Keflex (Cephalexin) 500 Mg Capsule 500 Mg PO TID 7 Days Hydrocodone-Ibuprofen 7.5-200 (Hydrocodone/Ibuprofen) 1 Each Tablet 1 Tab PO PRN Q6HRS PRN [Percogesic] 1 Tab PO QID PRN Zantac (Ranitidine Hcl) 150 Mg Tablet 1 Tab PO BID Zofran Odt (Ondansetron) 4 Mg Tab.rapdis 1 Tab SL Q8HRS Hydrocodone-Apap 5-325 (Hydrocodone Bit/Acetaminophen) 1 Each Tablet 1 Tab PO PRN Q6HRS PRN Reglan (Metoclopramide Hcl) 10 Mg Tablet 1 Tab PO PRN BID PRN Dragon Disclaimer This chart was dictated in whole or in part using Voice Recognition software in a busy, high-work load, and often noisy Emergency Department environment. It may contain unintended and wholly unrecognized errors or omissions. ROSLYN MEEK MD Apr 10, 2019 19:11
[2019-04-10 19:46] LABS: BARBITURATES NEG (NEG); BENZODIAZEPINES NEG (NEG); CANNABINOIDS POS (NEG); COCAINE NEG (NEG); METHADONE NEG (NEG); OPIATES NEG (NEG); PHENCYCLIDINE NEG (NEG)
[2019-04-10 19:49] LABS: AMPHETAMINE/METHAMPHETAMINE NEG (NEG)
[2019-04-10 19:54] LABS: BILIRUBIN,URINE NEG (NEG); CLARITY,URINE HAZY; COLOR,URINE STRAW; GLUCOSE,URINE NEG (NEG); NITRITE,URINE NEG (NEG); UROBILINOGEN,URINE 0.2 mg/dL (0.2 mg/dL)
[2019-04-10 19:55] LABS: BACTERIA,URINE MOD /HPF (0-FEW); RBC,URINE OCC /HPF (0-2); SQUAMOUS EPITHELIAL CELL,UR MOD /LPF
[2019-04-10 20:00] LABS: BASO # 0.1 x10^3/uL (0.0-0.2); BASO % 1 % (0-3); EOS # 0.2 x10^3/uL (0.0-0.7); EOS % 2 % (0-3); HEMATOCRIT 47.4 % (36.0-47.0); HEMOGLOBIN 15.4 g/dL (12.0-15.5); LYMPH # 3.8 x10^3/uL (1.0-4.8); LYMPH % 31 % (24-48); MEAN CORPUSCULAR HEMOGLOBIN 29 pg (25-35); MEAN CORPUSCULAR HGB CONC 33 g/dL (31-37); MEAN CORPUSCULAR VOLUME 91 fL (79-100); MONO # 0.8 x10^3/uL (0.0-1.1); MONO % 6 % (0-9); NEUT # 7.4 x10^3uL (1.8-7.7); NEUT % 60 % (31-73); PLATELET COUNT 291 x10^3/uL (140-400); RED BLOOD COUNT 5.24 x10^6/uL (3.50-5.40); WHITE BLOOD COUNT 12.2 x10^3/uL (4.0-11.0)
[2019-04-10] MEDS ORDERED: FAMOTIDINE 20 MG/2 ML VIAL IVP ONE (20:00)
[2019-04-10] MEDS ORDERED: ONDANSETRON PF 4 MG/2 ML VIAL. IV ONE (20:00)
[2019-04-10] MEDS ORDERED: IV RINGERS SOLUTION,LACTATED 1,000 ML IV SCH (20:00)
[2019-04-10] MEDS ORDERED: KETOROLAC 30 MG/ML VIAL. IV ONE (20:00)
[2019-04-10 20:10] LABS: ALBUMIN 3.9 g/dL (3.4-5.0); CALCIUM 9.1 mg/dL (8.5-10.1); CREATININE 0.7 mg/dL (0.6-1.0); DIRECT BILIRUBIN 0.1 mg/dL (0.0-0.2); GFR 103.7; POTASSIUM 4.1 mmol/L (3.5-5.1); TOTAL BILIRUBIN 0.2 mg/dL (0.2-1.0); TOTAL PROTEIN 8.2 g/dL (6.4-8.2)
[2019-04-10] MEDS ORDERED: IOHEXOL 240 MG/ML 50ML VIAL. ONE (21:11)
[2019-04-10] MEDS ORDERED: MORPHINE SULFATE 10 MG/ML SYRINGE. SQ ONE (23:00)
[2019-04-10] MEDS ORDERED: IOHEXOL 240 MG/ML 50ML VIAL. PO ONE (23:15)
[2019-04-10] MEDS ORDERED: CONTRAST GIVEN MC PRN (23:15)
[2019-04-10] MEDS ORDERED: IOHEXOL 300 MG/ML 75 ML VIAL. IV ONE (23:15)
[2019-04-10] MEDS ORDERED: cefTRIAXone SODIUM 1 GM VIAL ONE (23:48)
[2019-04-10] MEDS ORDERED: IV NORMAL SALINE 50ML 50 ML ONE (23:48)
--- NOTE | 2019-04-10 23:53 | RAD ---
EXAM: CT Abdomen and Pelvis with IV contrast CLINICAL HISTORY: Right lower quadrant pain. COMPARISON: none TECHNIQUE: Helical CT of the abdomen and pelvis was performed following the administration of intravenous contrast. Axial, coronal and sagittal reformatted images were generated. PQRS compliance statement - One or more of the following individualized dose reduction techniques were utilized for this study: 1. Automated exposure control 2. Adjustment of the mA and/or kV according to patient size 3. Use of iterative reconstruction technique FINDINGS: Lower chest: Lung bases are clear. Abdomen and Pelvis: No focal liver lesion. Gallbladder is normal. No biliary ductal dilatation. Spleen is unremarkable. Adrenal glands are normal. Pancreas is unremarkable. Symmetric nephrograms. No focal renal lesion. No hydronephrosis. No hydroureter. Moderate colonic stool content is seen. The appendix is filled with contrast. No evidence for bowel obstruction. Right ovarian cystic structure/follicle is seen. Mild endometrial prominence can be correlated with phase of menstrual cycle. Bones: Degenerative changes of the spine are seen. IMPRESSION: 1. Right adnexal cystic structure is seen, likely ovarian follicle. 2. The appendix is normal in appearance, filled with contrast. 3. No evidence of bowel obstruction. 4. Mild prominence of endometrium can be correlated with phase of menstrual cycle. Electronically signed by: Yuriy Esposito MD (04/10/2019 11:50 PM) [facility]
[2019-04-11] MEDS ORDERED: METR70GE14 VG (00:10)
[2019-04-11] MEDS ORDERED: HYDR-1179 PO (00:10)
[2019-04-11] MEDS ORDERED: ONDA8TAB9 PO (00:10)
[2019-04-11] MEDS ORDERED: CEPH-264 PO (00:10)
[2019-04-11] MEDS ORDERED: MAGNESIUM HYDROXIDE 2,400 MG/30 ML ORAL.SUSP. PO ONE (00:15)
[2019-04-11] MEDS ORDERED: AZITHROMYCIN 250 MG TABLET. PO ONE (00:15)
[2019-04-11 00:20] VITALS: BP 122/79
[2019-04-11] MEDS ORDERED: FLUC100T7 PO (00:31)
--- NOTE | 2019-04-11 07:03 | EKG ---
[address] [address] Test Date: 2019-04-10 Test Time: 20:59:25 Pat Name: MARCELINA FARNSWORTH Department: Room: Gender: F [employer] Infrastructure Engineer: : 1995 Requested By: ROSLYN MEEK Order Number: [id number] Reading MD: Measurements Intervals [place] Rate: 64 P: 0 [place]: 134 QRS: 21 QRSD: 78 T: 31 QT: 380 QTc: 396 Interpretive Statements SINUS RHYTHM QRS(T) CONTOUR ABNORMALITY CONSIDER ANTEROSEPTAL MYOCARDIAL DAMAGE POSSIBLY ABNORMAL ECG RI6.01 No previous ECG available for comparison
--- NOTE | 2019-04-11 08:34 | RAD ---
Acute abdominal series with single view chest 04/10/2019 7:42 PM INDICATION: Abdominal and pelvic pain COMPARISON: CT abdomen/pelvis June 17, 2018 TECHNIQUE: Single upright view of the chest, upright view of the abdomen and supine view of abdomen are provided. FINDINGS: The cardiomediastinal silhouette is within normal limits. There are no pleural effusions. There is no pulmonary vascular congestion. There is no pneumothorax. The lungs are clear. No significant osseous abnormality is identified. No free intraperitoneal air. No portal venous gas. There are no dilated loops of small or large bowel. No suspicious calcifications. No differential air-fluid levels. IMPRESSION: No acute cardiopulmonary process. Nonobstructive bowel gas pattern. Electronically signed by: Zaira Velasquez MD (04/11/2019 8:31 AM) [id number]
[2019-04-12 17:06] LABS: CHLAMYDIA PROBE Negative (Negative)
== END 2019-04-11 01:33 | disposition home or self-care (01) ==
LOC: ER 18:13
DX: N76.0 Acute vaginitis (principal); B96.89 Other specified bacterial agents as the cause of diseases classified elsewhere; N72 Inflammatory disease of cervix uteri; D72.829 Elevated white blood cell count, unspecified; N83.201 Unspecified ovarian cyst, right side; K21.9 Gastro-esophageal reflux disease without esophagitis; F17.210 Nicotine dependence, cigarettes, uncomplicated; F12.90 Cannabis use, unspecified, uncomplicated; Z87.11 Personal history of peptic ulcer disease; Z87.440 Personal history of urinary (tract) infections
CPT/HCPCS: 36415; 74022; 74177; 80048; 80076; 80307; 81001; 81025; 83690; 85025; 85610; 85730; 86592; 86703; 86705; 86709; 86803; 87086; 87340; 87491; 87591; 93005; 96365; 96368; 96372; 96375; 99285; J0696; J1885; J2270; J2405; J3490; J7120; Q0111; Q9966; Q9967

== ENCOUNTER 2020-03-19 07:01 | Emergency (ER) | payer MEDICAID ==
[~2020-03-19] VITALS: Ht 157.5 cm; Wt 83.5 kg
[~2020-03-19 07:01] MED LIST changes: +CEPH-264 PO; +FLUC100T7 PO; +HYDR-1179 PO; +METR70GE14 VG; +ONDA8TAB9 PO
--- NOTE | 2020-03-19 07:30 | PHYS DOC ---
Past History Past Medical History: GERD, Ovarian Cyst, Pancreatitis, P.U.D, UTI Additional Past Medical Histor: history of H. pylori status post treatment Past Surgical History: Other Smoking: Cigarettes Alcohol Use: None Drug Use: None General Adult EDM: Chief Complaint: VAGINAL BLEEDING HPI: HPI: Patient is a 24-year-old female, prima gravid, approximately 7 weeks gestation based on an ultrasound she states she had over a week ago at , who presents to the emergency department for evaluation of vaginal bleeding which began this morning. She states that when she urinated she had some bright red blood with some blood clots vaginally. She does report some mild lower abdominal cramping. She has not had any significant nausea, vomiting, urinary symptoms, dizziness or lightheadedness, or fever. She states that she had a ultrasound at last week, which showed a yolk sac, and she was scheduled for a follow-up ultrasound at at some point this week, but she does not yet actually had an OB appointment scheduled. She states she has been receiving her care through the health department. Review of Systems: Review of Systems: Constitutional: Denies fever or chills Eyes: Denies change in visual acuity HENT: Denies nasal congestion or sore throat Respiratory: Denies cough or shortness of breath Cardiovascular: Denies chest pain or edema GI: Denies abdominal pain, nausea, vomiting, bloody stools or diarrhea : Denies dysuria Musculoskeletal: Denies back pain or joint pain Integument: Denies rash Neurologic: Denies headache, focal weakness or sensory changes Endocrine: Denies polyuria or polydipsia Lymphatic: Denies swollen glands Psychiatric: Denies depression or anxiety Heart Score: Risk Factors: Risk Factors: DM, Current or recent (<one month) smoker, HTN, HLP, family history of CAD, obesity. Risk Scores: Score 0 - 3: 2.5% MACE over next 6 weeks - Discharge Home Score 4 - 6: 20.3% MACE over next 6 weeks - Admit for Clinical Observation Score 7 - 10: 72.7% MACE over next 6 weeks - Early Invasive Strategies Allergies: Allergies: Allergies Coded Allergies Type Severity Reaction Last Updated Verified No Known Drug Allergies 03/19/20 No Physical Exam: PE: PHYSICAL EXAM: CONSTITUTIONAL: Well developed, well nourished HEAD: normocephalic, atraumatic EENT: PERRL, EOMI. Conjunctivae normal color, sclerae non-icteric; moist mucous membranes. NECK: Supple, non-tender; no meningismus. LUNGS: Lungs CTA, breathing even and unlabored. Normal air movement. HEART: Regular rate and rhythm, no murmur CHEST: No deformity; non-tender ABDOMEN: The abdomen is soft, and non-tender, no masses or bruits. EXTREM: Normal ROM; no deformity, no calf tenderness. Normal pulses palpable in all extremities. There is no pedal edema. SKIN: No rash; no diaphoresis NEURO: Alert; normal speech and cognition; CN's grossly intact; strength grossly intact without focal deficit. BACK: No CVA TTP. PELVIC EXAM: Normal external genitalia. There is a trace amount of blood coming from the cervix, there is no other vaginal discharge noted. Bimanual exam deferred. Exam was performed in the presence of the patient's nurse, Tere. Current Patient Data: Labs: Laboratory Tests Test 03/19/20 07:59 03/19/20 08:35 White Blood Count 12.7 x10^3/uL Red Blood Count 4.32 x10^6/uL Hemoglobin 13.1 g/dL Hematocrit 38.9 % Mean Corpuscular Volume 90 fL Mean Corpuscular Hemoglobin 30 pg Mean Corpuscular Hemoglobin Concent 34 g/dL Red Cell Distribution Width 13.6 % Platelet Count 254 x10^3/uL Neutrophils (%) (Auto) 64 % Lymphocytes (%) (Auto) 27 % Monocytes (%) (Auto) 6 % Eosinophils (%) (Auto) 1 % Basophils (%) (Auto) 1 % Neutrophils # (Auto) 8.2 x10^3uL Lymphocytes # (Auto) 3.4 x10^3/uL Monocytes # (Auto) 0.8 x10^3/uL Eosinophils # (Auto) 0.2 x10^3/uL Basophils # (Auto) 0.1 x10^3/uL Maternal Serum HCG Beta Subunit 446947 mIU/mL Sodium Level 136 mmol/L Potassium Level 3.4 mmol/L Chloride Level 102 mmol/L Carbon Dioxide Level 24 mmol/L Anion Gap 10 Blood Urea Nitrogen 7 mg/dL Creatinine 0.6 mg/dL Estimated GFR (Cockcroft-Gault) 122.8 Glucose Level 90 mg/dL Calcium Level 8.6 mg/dL Total Bilirubin 0.2 mg/dL Direct Bilirubin 0.1 mg/dL Aspartate Amino Transf (AST/SGOT) 19 U/L Alanine Aminotransferase (ALT/SGPT) 25 U/L Alkaline Phosphatase 67 U/L Total Protein 7.5 g/dL Albumin 3.2 g/dL Urine Collection Type Unknown Urine Color Yellow Urine Clarity Clear Urine pH 6.5 Urine Specific [place] 1.025 Urine Protein Neg Urine Glucose (UA) Neg mg/dL Urine Ketones (Stick) Neg mg/dL Urine Blood Small Urine Nitrite Neg Urine Bilirubin Neg Urine Urobilinogen Dipstick 0.2 mg/dL Urine Leukocyte Esterase Neg Urine RBC 3-5 /HPF Urine WBC Occ /HPF Urine Squamous Epithelial Cells Mod /LPF Urine Bacteria Few /HPF EKG: EKG: [] Radiology/Procedures: Radiology/Procedures: PROCEDURE: OB <14 WKS EXAMINATION: OB <14 WKS 03/19/2020 7:22 AM INDICATION: Vaginal bleeding, TECHNIQUE: Gonzalez scale and color Doppler ultrasound images of the pelvis according to OB less than 14 weeks protocol. COMPARISON: None. FINDINGS: The uterus is anteverted and measures 10.5 x 6.9 x 4.8 cm. There is a gestational sac containing an embryo with crown-rump length of 1.0 cm, consistent with gestational age 7 weeks 1 days. cardiac activity is detected with heart rate of 149 bpm. A yolk sac is present. No subchorionic hemorrhage. The right ovary measures 3.6 x 2.8 x 2.2 cm. The left ovary measures 3.5 x 2.5 x 2.5 cm. There is blood flow to both ovaries. No free fluid in the cul-de-sac or adnexal mass. IMPRESSION: Single living intrauterine with gestational age 7 weeks 1 day by crown-rump length. heart rate 149 bpm.[] Course & Med Decision Making: Course & Med Decision Making Pertinent Labs and Imaging studies reviewed. (See chart for details) [] Patient remains stable. I discussed test results, the need for close follow- up and establishment of care with an [employer], and return precautions. Patient is Rh- and will be given a dose of RhoGam. [place] Disclaimer: [place] Disclaimer: This electronic medical record was generated, in whole or in part, using a voice recognition dictation system. Departure Departure: Impression: Primary Impression: Threatened miscarriage Disposition: HOME/RESIDENCE PRIOR TO ADM Condition: STABLE Referrals: PCPALEXANDER (PCP) Patient Instructions: Threatened Miscarriage Additional Instructions: Call [phone] to schedule an appointment with [facility] [employer] [facility] at [facility]. Return to medical care for any new or worsening symptoms, development of dizziness, lightheadedness, significant vaginal bleeding or increased pain, or any other new or concerning symptoms. It is expected that you might have some bleeding on and off over the next several days to weeks, and outpatient follow- up for this would be appropriate unless you feel you have an emergency condition that requires further evaluation. Justification of Admission: Justification of Admission: Justification of Admission Dx: N/A LESA NICKERSON MD Mar 19, 2020 07:30
--- NOTE | 2020-03-19 08:05 | RAD ---
EXAMINATION: OB <14 WKS 03/19/2020 7:22 AM INDICATION: Vaginal bleeding, TECHNIQUE: Gonzalez scale and color Doppler ultrasound images of the pelvis according to OB less than 14 weeks protocol. COMPARISON: None. FINDINGS: The uterus is anteverted and measures 10.5 x 6.9 x 4.8 cm. There is a gestational sac containing an embryo with crown-rump length of 1.0 cm, consistent with gestational age 7 weeks 1 days. cardiac activity is detected with heart rate of 149 bpm. A yolk sac is present. No subchorionic hemorrhage. The right ovary measures 3.6 x 2.8 x 2.2 cm. The left ovary measures 3.5 x 2.5 x 2.5 cm. There is blood flow to both ovaries. No free fluid in the cul-de-sac or adnexal mass. IMPRESSION: Single living intrauterine with gestational age 7 weeks 1 day by crown-rump length. heart rate 149 bpm. Electronically signed by: Diana Lackey MD (03/19/2020 8:02 AM) [id number]
[2020-03-19 08:18] LABS: BASO # 0.1 x10^3/uL (0.0-0.2); BASO % 1 % (0-3); EOS # 0.2 x10^3/uL (0.0-0.7); EOS % 1 % (0-3); HEMATOCRIT 38.9 % (36.0-47.0); HEMOGLOBIN 13.1 g/dL (12.0-15.5); LYMPH # 3.4 x10^3/uL (1.0-4.8); LYMPH % 27 % (24-48); MEAN CORPUSCULAR HEMOGLOBIN 30 pg (25-35); MEAN CORPUSCULAR HGB CONC 34 g/dL (31-37); MEAN CORPUSCULAR VOLUME 90 fL (79-100); MONO # 0.8 x10^3/uL (0.0-1.1); MONO % 6 % (0-9); NEUT # 8.2 x10^3uL (1.8-7.7); NEUT % 64 % (31-73); PLATELET COUNT 254 x10^3/uL (140-400); RED BLOOD COUNT 4.32 x10^6/uL (3.50-5.40); RED CELL DISTRIBUTION WIDTH 13.6 % (11.5-14.5); WHITE BLOOD COUNT 12.7 x10^3/uL (4.0-11.0)
[2020-03-19 08:24] LABS: CALCIUM 8.6 mg/dL (8.5-10.1); CREATININE 0.6 mg/dL (0.6-1.0); GFR 122.8; POTASSIUM 3.4 mmol/L (3.5-5.1)
[2020-03-19 08:30] LABS: ALBUMIN 3.2 g/dL (3.4-5.0); DIRECT BILIRUBIN 0.1 mg/dL (0.0-0.2); TOTAL BILIRUBIN 0.2 mg/dL (0.2-1.0); TOTAL PROTEIN 7.5 g/dL (6.4-8.2)
[2020-03-19 09:30] LABS: BACTERIA,URINE FEW /HPF (0-FEW); BILIRUBIN,URINE NEG (NEG); CLARITY,URINE CLEAR; COLOR,URINE YELLOW; GLUCOSE,URINE NEG (NEG); NITRITE,URINE NEG (NEG); SQUAMOUS EPITHELIAL CELL,UR MOD /LPF; UROBILINOGEN,URINE 0.2 mg/dL (0.2 mg/dL); WBC,URINE OCC /HPF (0-4)
[2020-03-19 10:41] VITALS: BP 127/79
[2020-03-19 11:06] VITALS: BP 122/76
[2020-03-20 19:07] LABS: CHLAMYDIA PROBE Negative (Negative)
== END 2020-03-19 11:16 | disposition home or self-care (01) ==
LOC: ER 07:01
DX: O20.0 Threatened abortion (principal); O23.41 Unspecified infection of urinary tract in pregnancy, first trimester; O99.511 Diseases of the respiratory system complicating pregnancy, first trimester; K21.9 Gastro-esophageal reflux disease without esophagitis; O99.331 Smoking (tobacco) complicating pregnancy, first trimester; Z3A.01 Less than 8 weeks gestation of pregnancy; Z87.11 Personal history of peptic ulcer disease
CPT/HCPCS: 36415; 36430; 76801; 80048; 80076; 81001; 84702; 85025; 86850; 86900; 86901; 87491; 87591; 99285; J2791; Q0111

== ENCOUNTER 2020-04-15 04:06 | Emergency (ER) | payer MEDICAID ==
[~2020-04-15] VITALS: Ht 154.9 cm; Wt 80.5 kg
--- NOTE | 2020-04-15 04:11 | PHYS DOC ---
Past History Past Medical History: No Pertinent History, Anxiety, GERD, Ovarian Cyst Additional Past Medical Histor: history of H. pylori status post treatment Past Surgical History: Other Additional Past Surgical Histo: multiple leg surgeries Smoking: Cigarettes Alcohol Use: Rarely Drug Use: Marijuana General Adult HPI: HPI: "..I am so sick ... with this ... I been vomiting the last 2 days... Now I am only vomiting up yellow bile......and my upper stomach..and Rt upper hurts... I been taking some [id number] meds by mom gave me... Sheila and B complex.... But is not helping... This is my first .... I was in here the other day on .. Patient is a 24 year old female who presents with above hx and complaints of nausea , vomiting with dry heaves. Pt. is 11- 12 weeks gravid by US her on 03/19 visit and US at two weeks ago. Pt. history of a gravid 1. No history of STDs. No history of trauma. No specific ill contacts. Patient did smoke tobacco but has stopped with this . Patient has continued to smoke marijuana. Patient states she has been attempting to cut down on her marijuana usage. Patient denies any other illicit drug use. Patient denies any history of intake of bad food. No recent travel. No specific ill contacts. No recent travel outside the [place] area.. No history of trauma. Patient denies any domestic abuse. Patient is following at OB clinic. Patient does have a past medical history of H. pylori infection, peptic ulcer disease, cervicitis, bacterial vaginosis, ovarian cysts, GERD, and constipation. Patient denies any diarrhea. Patient denies any tarry stools. Has been passing gas. Patient has not been unable tolerate food for the last 2 days. Has attempted to hydrate with Pedialyte, Jell-O, clear fluids. Etc. Patient was seen here on for threatened and did receive RhoGam at that time because of the vaginal spotting. Since that time the vaginal bleeding has stopped. Has no vaginal discharge. Review of Systems: Review of Systems: Constitutional: Denies fever or chills Eyes: Denies change in visual acuity HENT: Denies nasal congestion or sore throat Respiratory: Denies cough or shortness of breath Cardiovascular: Denies chest pain or edema GI: Complains of right upper quadrant and epigastric abdominal pain, nausea, vomiting,. Denies bloody stools or diarrhea . Denies vaginal discharge : Denies dysuria Musculoskeletal: Denies back pain or joint pain Integument: Denies rash Neurologic: Denies headache, focal weakness or sensory changes Endocrine: Denies polyuria or polydipsia Lymphatic: Denies swollen glands Psychiatric: Denies depression or anxiety Heart Score: HEART Score for Chest Pain: HEART Score for Chest Pain Response (Comments) Value History Slighlty/Non-Suspicious 0 ECG Normal 0 Age < 45 0 Risk Factors No Risk Factors 0 Total 0 Risk Factors: Risk Factors: DM, Current or recent (<one month) smoker, HTN, HLP, family history of CAD, obesity. Risk Scores: Score 0 - 3: 2.5% MACE over next 6 weeks - Discharge Home Score 4 - 6: 20.3% MACE over next 6 weeks - Admit for Clinical Observation Score 7 - 10: 72.7% MACE over next 6 weeks - Early Invasive Strategies Family History: Family History: Mother has history of gallbladder disease Current Medications: Current Meds: See nursing for home meds Allergies: Allergies: Allergies Coded Allergies Type Severity Reaction Last Updated Verified No Known Drug Allergies 03/19/20 No Physical Exam: PE: Constitutional: Moderate acute distress, non-toxic appearance. [] HENT: Normocephalic, atraumatic, bilateral external ears normal, oropharynx dry, no oral exudates, nose normal. [] Eyes: PERRLA, EOMI, conjunctiva normal, no discharge. [] Neck: Normal range of motion, no tenderness, supple, no stridor. [] Cardiovascular:Heart rate regular rhythm, no murmur [] Lungs & Thorax: Bilateral breath sounds equal apex with scattered wheezes on auscultation [] Abdomen: Bowel sounds normal, soft, right upper quadrant and epigastric tenderness, no masses, no pulsatile masses. [] Rebound to right upper quadrant and epigastric area. Patient currently declines rectal exam or pelvic Skin: Warm, dry, no erythema, no rash. [] Back: No tenderness, no CVA tenderness. [] Extremities: No tenderness, no cyanosis, no clubbing, ROM intact, no edema. [] No psoas sign. Old surgery scars. Pt. ambulatory without problems. Neurologic: Alert and oriented X 3, normal motor function, normal sensory function, no focal deficits noted. DTR + 2 at brachial and patella. Psychologic: Affect anxious, judgement normal, mood normal. [] EKG: EKG: My interpretation EKG shows a sinus rhythm at 63 bpm. With no acute morphology [] Radiology/Procedures: Radiology/Procedures: Reviewed prior ultrasound report on 03/19-showed a intrauterine approximately 7 weeks and 1 day. cardiac activity at 149 bpm. No findings of subchorionic hemorrhage. [] Course & Med Decision Making: Course & Med Decision Making Pertinent Labs and Imaging studies reviewed. (See chart for details) Plan patient received bolus of LR. The Zofran 8 mg IV. We will give a dose of Benadryl and Pepcid. Replace electrolytes as needed. Encourage pt. to stop Marijuana and tobacco use. Pt. endorse to Dr. Perera at shift change. Hopefully will be able to discharge patient home with prescription of Zofran after supplement of potassium , magnesium, and fluids. Impression: 1. Hyperemesis gravidarum 2. Dehydration 3. Critical hypokalemia 2.8 4. Hypo-magnesium 1.7 5 . Mild leukocytosis 14.1 6.. History of tobacco and marijuana use 7. Intrauterine - 11-12 weeks 8. Hx GERD 9. Blood Type A negative (receive RhoGam on previous ED visit) 10. Beta-hCG this visit 87,[phone] [] Dragon Disclaimer: Dragon Disclaimer: This electronic medical record was generated, in whole or in part, using a voice recognition dictation system. Departure Departure: Disposition: 01 HOME/RESIDENCE PRIOR TO ADM Condition: STABLE Referrals: PCP,NO (PCP) Scripts Ondansetron Hcl (ZOFRAN) 8 Mg Tablet 8 MG PO QIDPRN PRN for active nausea and vomiting, #30 BOT Prov: ROSLYN MEEK MD 04/15/20 Justification of Admission: Justification of Admission: Justification of Admission Dx: N/A Dragon Disclaimer This chart was dictated in whole or in part using Voice Recognition software in a busy, high-work load, and often noisy Emergency Department environment. It may contain unintended and wholly unrecognized errors or omissions. Dragon Disclaimer This chart was dictated in whole or in part using Voice Recognition software in a busy, high-work load, and often noisy Emergency Department environment. It may contain unintended and wholly unrecognized errors or omissions. Dragon Disclaimer This chart was dictated in whole or in part using Voice Recognition software in a busy, high-work load, and often noisy Emergency Department environment. It may contain unintended and wholly unrecognized errors or omissions. ROSLYN MEEK MD Apr 15, 2020 04:11
[2020-04-15] MEDS ORDERED: ONDANSETRON PF 4 MG/2 ML VIAL. ONE (04:30)
[2020-04-15] MEDS ORDERED: FAMOTIDINE 20 MG/2 ML VIAL ONE (04:30)
[2020-04-15] MEDS ORDERED: ONDANSETRON PF 4 MG/2 ML VIAL. IVP ONE (04:45)
[2020-04-15] MEDS ORDERED: IV RINGERS SOLUTION,LACTATED 1,000 ML IV ONE (04:45)
[2020-04-15] MEDS ORDERED: FAMOTIDINE 20 MG/2 ML VIAL IVP ONE (04:45)
[2020-04-15 05:19] LABS: BASO # 0.1 x10^3/uL (0.0-0.2); BASO % 1 % (0-3); EOS # 0.1 x10^3/uL (0.0-0.7); EOS % 1 % (0-3); HEMATOCRIT 40.7 % (36.0-47.0); HEMOGLOBIN 13.8 g/dL (12.0-15.5); LYMPH # 2.4 x10^3/uL (1.0-4.8); LYMPH % 17 % (24-48); MEAN CORPUSCULAR HEMOGLOBIN 30 pg (25-35); MEAN CORPUSCULAR HGB CONC 34 g/dL (31-37); MEAN CORPUSCULAR VOLUME 89 fL (79-100); MONO # 0.8 x10^3/uL (0.0-1.1); MONO % 5 % (0-9); NEUT # 10.8 x10^3uL (1.8-7.7); NEUT % 76 % (31-73); PLATELET COUNT 285 x10^3/uL (140-400); RED BLOOD COUNT 4.56 x10^6/uL (3.50-5.40); RED CELL DISTRIBUTION WIDTH 13.6 % (11.5-14.5); WHITE BLOOD COUNT 14.1 x10^3/uL (4.0-11.0)
--- NOTE | 2020-04-15 05:22 | EKG ---
[address] [address] Test Date: 2020-04-15 Test Time: 05:17:53 Pat Name: MARCELINA FARNSWORTH Department: Room: Gender: F [employer]: : 1995 Requested By: ROSLYN MEEK Order Number: [id number] Reading MD: Measurements Intervals [place] Rate: 63 P: -23 MO: 136 QRS: 15 QRSD: 74 T: 6 QT: 408 QTc: 421 Interpretive Statements SINUS RHYTHM NORMAL ECG RI6.02 Compared to ECG 04/10/2019 20:59:25 No significant changes
[2020-04-15] MEDS ORDERED: IV RINGERS SOLUTION,LACTATED 1,000 ML IV SCH (05:30)
[2020-04-15] MEDS ORDERED: diphenhydrAMINE 50 MG/ML VIAL IVP ONE (05:30)
[2020-04-15 05:31] LABS: ALBUMIN 3.1 g/dL (3.4-5.0); CALCIUM 9.4 mg/dL (8.5-10.1); CREATININE 0.7 mg/dL (0.6-1.0); DIRECT BILIRUBIN 0.1 mg/dL (0.0-0.2); GFR 102.8; MAGNESIUM 1.7 mg/dL (1.8-2.4); TOTAL BILIRUBIN 0.3 mg/dL (0.2-1.0); TOTAL PROTEIN 7.7 g/dL (6.4-8.2)
[2020-04-15 05:35] LABS: POTASSIUM 2.8 mmol/L (3.5-5.1)
[2020-04-15 05:58] LABS: BILIRUBIN,URINE NEG (NEG); CLARITY,URINE CLEAR; COLOR,URINE YELLOW; GLUCOSE,URINE NEG (NEG); NITRITE,URINE NEG (NEG); RBC,URINE 0 /HPF (0-2); UROBILINOGEN,URINE 0.2 mg/dL (0.2 mg/dL)
[2020-04-15 05:59] LABS: BACTERIA,URINE FEW /HPF (0-FEW); BARBITURATES NEG (NEG); BENZODIAZEPINES NEG (NEG); CANNABINOIDS POS (NEG); COCAINE NEG (NEG); METHADONE NEG (NEG); OPIATES NEG (NEG); PHENCYCLIDINE NEG (NEG); SQUAMOUS EPITHELIAL CELL,UR MANY /LPF
[2020-04-15] MEDS ORDERED: ONDA8TAB9 PO (05:59)
[2020-04-15 06:00] LABS: AMPHETAMINE/METHAMPHETAMINE NEG (NEG)
[2020-04-15] MEDS ORDERED: POTASSIUM CL 40MEQ IN 0.9%NACL 1,000 ML IV ONE (06:00)
[2020-04-15] MEDS ORDERED: MAGNESIUM SULFATE 2GM 50 ML IV ONE (06:00)
[2020-04-15 06:24] VITALS: BP 118/53
== END 2020-04-15 10:42 | disposition home or self-care (01) ==
LOC: ER 04:06
DX: O21.0 Mild hyperemesis gravidarum (principal); O99.281 Endocrine, nutritional and metabolic diseases complicating pregnancy, first trimester; E86.0 Dehydration; E87.6 Hypokalemia; E83.42 Hypomagnesemia; O99.111 Other diseases of the blood and blood-forming organs and certain disorders involving the immune mechanism complicating pregnancy, first trimester; D72.829 Elevated white blood cell count, unspecified; K21.9 Gastro-esophageal reflux disease without esophagitis; O99.331 Smoking (tobacco) complicating pregnancy, first trimester; O99.321 Drug use complicating pregnancy, first trimester; F12.10 Cannabis abuse, uncomplicated; Z3A.01 Less than 8 weeks gestation of pregnancy
CPT/HCPCS: 36415; 80048; 80076; 80307; 81001; 82550; 83690; 83735; 84484; 84702; 85025; 85610; 85730; 93005; 96361; 96365; 96366; 96368; 96375; 99285; J1200; J2405; J3475; J3490; J7120